=== PATIENT | male | born 1955 | race Caucasian/White ===

== ENCOUNTER 2018-10-03 05:41 | Inpatient (IN) | payer OTHER ==
[2018-10-03] MEDS ORDERED: LR 1,000 ML IV ONE (06:02)
[2018-10-03] MEDS ORDERED: MIDAZOLAM 2 MG/2 ML VIAL IVP ONE (06:11)
--- NOTE | 2018-10-03 06:12 | PDANEPAE ---
ANE History of Present Illness Late entry, patient seen in preop, examined and consented prior to 7 am ANE Past Medical History - Cardiovascular History Hx Hypertension: Yes Hx Arrhythmias: No Hx Chest Pain: No Hx Coronary Artery / Peripheral Vascular Disease: No Hx CHF / Valvular Disease: No Hx Palpitations: No Cardiovascular History Comment: HYPERLIPIDEMIA - Pulmonary History Hx COPD: No Hx Asthma/Reactive Airway Disease: No Hx Recent Upper Respiratory Infection: No Hx Oxygen in Use at Home: No Hx Sleep Apnea: No Sleep Apnea Screening Result - Last Documented: Positive Pulmonary History Comment: JAYLIN triggers - Neurologic History Hx Cerebrovascular Accident: No Hx Seizures: No Hx Dementia: No Neurologic History Comment: numbness right great toe and heel, occasional weakness RLE - Endocrine History Hx Diabetes: No - Renal History Hx Renal Disorders: No Renal History Comment: renal issues with dehydration summer 2017, has since resolved. enlarged prostate - Liver History Hx Hepatic Disorders: No - Neurological & Psychiatric Hx Hx Neurological and Psychiatric Disorders: No - Cancer History Hx Cancer: No - Congenital Disorder History Hx Congenital Disorders: No - GI History Hx Gastrointestinal Disorders: Yes Gastrointestinal History Comment: GERD - Other Health History Other Health History: wears glasses - Chronic Pain History Chronic Pain: Yes (low back, RLL) - Surgical History Prior Surgeries: thyroglossal duct excision, 2016. DISCECTOMY LUMBAR ~1991. nasal reconstruction when in [facility] ANE Review of Systems Review of Systems: - Exercise capacity METS (RN): 4 METS ANE Patient History - Allergies Allergies/Adverse Reactions: No Known Allergies Allergy (Verified 09/23/18 14:24) - Home Medications Home Medications: Aspirin [Aspirin 81mg (*)] 81 mg PO DAILY 09/16/18 [Last Taken 1 Week Ago ~09/26] Lisinopril [Zestril 20 mg (*)] 20 mg PO DAILY 09/16/18 [Last Taken 10/02/18] Multivitamins [Multivitamin (*)] 1 each PO DAILY 09/16/18 [Last Taken 09/26/18] Pantoprazole Sodium [Protonix 40mg (*)] 40 mg PO Q2D 09/16/18 [Last Taken 04:15] Tamsulosin HCl [Flomax 0.4 MG (*)] 0.4 mg PO HS 09/16/18 [Last Taken 10/02/18] - Anes Hx Anes Hx: no prior problems - Smoking Hx Smoking Status: Former smoker - Family Anes Hx Family Hx Anesthesia Complications: none ANE Labs/Vital Signs - Vital Signs Height: 176.53 cm Weight: 88.451 kg ANE Physical Exam - Airway Neck exam: FROM Mallampati Score: Class 1 Mouth exam: normal dental/mouth exam - Pulmonary Pulmonary: clear to auscultation - Cardiovascular Cardiovascular: regular rate and rhythym - ASA Status ASA Status: II
[2018-10-03] MEDS ORDERED: BUPIVACAINE/EPI 0.5% 30 ML SDV ONE (06:32)
[2018-10-03] MEDS ORDERED: BACITRACIN 50,000 UNITS/10 ML SYR IRR ONE (06:32)
[2018-10-03] MEDS ORDERED: ACETAMINOPHEN 500 MG TAB PO ONE (06:40)
[2018-10-03] MEDS ORDERED: TRANEXAMIC ACID 1,000 MG in NS 100 ML IV ONE (06:40)
[2018-10-03] MEDS ORDERED: GABAPENTIN 300 MG CAP PO ONE (06:40)
[2018-10-03] MEDS ORDERED: ceFAZolin 2 GM/DEXTROSE 100 ML IV ONE (06:40)
[2018-10-03] MEDS ORDERED: PROPOFOL/EMULSION 500 MG/50 ML BOTTLE IV ONE ×2 (07:02→09:20)
[2018-10-03] MEDS ORDERED: PROPOFOL 200 MG/20 ML VIAL ONE (07:02)
[2018-10-03] MEDS ORDERED: REMIFENTANIL HCL 1 MG VIAL ONE ×2 (07:02→09:20)
[2018-10-03] MEDS ORDERED: fentaNYL 100 MCG/2 ML INJ ONE ×3 (07:05→10:15)
[2018-10-03] MEDS ORDERED: GLYCOPYRROLATE 0.2 MG/1 ML VIAL ONE (07:52)
[2018-10-03] MEDS ORDERED: DEXAMETHASONE 4 MG/ML VIAL ONE ×3 (07:52)
[2018-10-03] MEDS ORDERED: ROCURONIUM 50 MG/5 ML VIAL ONE (07:55)
[2018-10-03] MEDS ORDERED: ePHEDrine SULFATE 25 MG/5 ML SYR ONE (07:55)
[2018-10-03] MEDS ORDERED: PHENYLEPHRINE 10 MG/ML SDV ONE (08:03)
--- NOTE | 2018-10-03 08:32 | POSTANESTH ---
Post Anesthetic Evaluation Cardiovascular Status: Normal, Stable Respiratory Status: Normal, Stable Level of Consciousness/Mental Status: Can Participate in Eval Pain Control: Adequate, Prn Tx Ordered Nausea/Vomiting Control: Adequate, Prn Tx Ordered Complications Possibly Related to Anesthesia: None Noted
[2018-10-03] MEDS ORDERED: VANCOMYCIN 1 GM VIAL ONE (09:22)
[2018-10-03] MEDS ORDERED: ONDANSETRON 4 MG/2 ML VIAL ONE (09:23)
[2018-10-03] MEDS ORDERED: MEPERIDINE 25 MG/0.5 ML AMP IVP PRN (09:35)
[2018-10-03] MEDS ORDERED: HYDROmorphONE/DILAUDID 2 MG/ML INJ IVP PRN (09:35)
[2018-10-03] MEDS ORDERED: LR 500 ML IV PRN (09:35)
[2018-10-03] MEDS ORDERED: METOCLOPRAMIDE 10 MG/2 ML VIAL IVP PRN (09:35)
[2018-10-03] MEDS ORDERED: LABETALOL HCL 5 MG/ML 20 ML MDV IVP PRN (09:35)
[2018-10-03] MEDS ORDERED: ONDANSETRON 4 MG/2 ML VIAL IVP PRN (09:35)
[2018-10-03] MEDS ORDERED: DIAZEPAM 5 MG/ML 1 ML SYR IVP PRN (09:35)
[2018-10-03] MEDS ORDERED: NALOXONE HCL 0.4 MG/ML INJ IVP PRN (09:35)
[2018-10-03] MEDS ORDERED: ALBUTEROL 3 ML DEYVIAL IH PRN (09:35)
[2018-10-03] MEDS ORDERED: PROMETHAZINE HCL 25 MG/ML INJ IVP PRN (09:35)
[2018-10-03] MEDS ORDERED: LACTULOSE 20 GM/30 ML UDCUP PO PRN (09:50)
[2018-10-03] MEDS ORDERED: MAGNESIUM HYDROXIDE 30 ML UDCUP PO PRN (09:50)
[2018-10-03] MEDS ORDERED: POLYETHYLENE GLYCOL 3350 17 GM PKT PO PRN (09:50)
[2018-10-03] MEDS ORDERED: BISACODYL 10 MG SUPP PR PRN (09:50)
--- NOTE | 2018-10-03 09:59 | SUROPNOTE ---
[facility] Operative Report - Surgery Date: 10/03/18 Pre-operative Diagnoses: L4/5 Degenerative disc disease and spondylosis L4/5 Degenerative spondylolisthesis Bilateral L4 pars insufficiency fractures Lumbar spinal stenosis Post-operative Diagnosis: Same Procedures: L4/5 Minimally Invasive Posterior Lumbar Decompression and Fusion with Instrumentation Rt L4/5 Transforaminal Lumbar Interbody Fusion (TLIF) Structural use of morselized local autograft bone Structural use of allograft Use of intra-operative fluoroscopy Use of intra-operative neuromonitoring, including EMG and SSEP modalities Use of a surgical microscope Surgeon: Raf Mackey MD Assist: Khari Ulloa Anesthesia: General endotracheal anesthesia Findings: As expected spondylolisthesis, spinal stenosis, facet hypertrophy Estimated Blood Loss: 20mL Drains: Hemovac Specimens: None Complications: None Condition: Transferred to PACU in stable condition Implants: NuVasive Screws: 6.5x45mm x4 Rods: 40mm x2 TLIF cage: [id number] 20deg cage, 9mm Allograft: 5mL allograft used structurally in the disc space and interbody cage Autograft: local bone from decompression used structurally in the disc space and interbody cage Indications: This patient was seen in my office and diagnosed with L4/5 degenerative spondylolisthesis and spinal stenosis. I have explained all options of treatment for the patient, and the patient has elected to proceed with operative management. I have explained all risks, benefits, and alternatives of the proposed procedure. The risks that we have discussed include , blindness, nerve damage, infection, dural tear, failure of surgery to alleviate pre-operative symptoms, nonunion, and possible need for further operation. I explained separately the risks of allograft, including infection and disease transfer. In addition to the aforementioned procedure, I discussed with the patient that other procedures may be indicated during the course of surgery that would be considered in the patients best interest. The patient expressed understanding of this and agreed to move forward with operative management. Pre-operative: The proposed incision site was marked in the pre-operative holding area by me. The patient was then taken to the operating room in stable condition. Following smooth induction of general anesthesia, the patient was positioned prone on a Clark table in mild reverse Trendelenburg with all down surfaces well-padded. The patient was then prepped and draped in the usual sterile fashion. Pre- operative antibiotics were administered within one hour of the incision. A surgical timeout was performed, and all parties involved in the procedure were in agreement on the correct patient, location, and procedure to be performed. Level localization and spinal pause: The proposed L4 and L5 levels were identified using C-arm fluoroscopy and the skin was marked for the proposed incision. The pedicles were marked out. Two separate incisions, 4cm lateral to midline were made, approximately 4cm in length. Electrocautery was used to dissect the subdermal fat layer down to fascia and to coagulate bleeding vessels. The fascia was then incised longitudinally in line with the incision. Blunt finger dissection was then performed; the facets were palpated and muscle was swept away al allow for instrumentation to be passed easily down to bone. At this time, a secondary spinal pause was then performed, and the level was confirmed with all parties participating in the operation. Pedicle screw placement: All pedicle screws were placed in a percutaneous fashion. Using biplanar fluoroscopy, a Jamshidi needle was gently malleted into place at the appropriate pedicle screw starting position at the lateral border of the facet on the AP view and mid-point of the pedicle on lateral view. The needle was advanced just past the pedicle into the vertebral body. At this point, a neurostimulating probe was attached to the end of the needle and all potentials were noted to be above 10 milliamps. The central trocar was then removed, and a blunt K-wire was passed into the cannulated pedicle. The Jamshidi was then removed completely, with the K-wire anchored in the vertebral body. A tap was then used up to a size that was 1mm below the final screw size based on pre- operative templating. An appropriately-sized screw was placed at each level and confirmed fluoroscopically. All screws were then stimulated. Each screw was stimulated and potentials were all above 20 milliAmps. Approach and transpedicular decompression (cephalad level nerve root to be fused ): Based on pre-operative neurological symptoms, a decision was made with the patient to place a TLIF cage on the more symptomatic side. A pointed dilator was introduced onto the lateral pars of the caudal level to be fused. Serial dilators were used and the XLIF retractor system was then docked. Positioning was confirmed parallel to the disc space to be fused by lateral fluoroscopy. Using a transpedicular decompression technique and taking care to avoid breach into the previously created pedicle tract, the inferior facet of the cephalad level to be fused, and the superior facet of the caudal level to be fused were removed using a high speed gabrielle and Kerrison rongeurs. Special care was taken to not use the high speed gabrielle in proximity to the underlying nerve root. Using a [place] #4, the nerve was protected cephalad and Kambins triangle was identified (bordered by the nerve root cephalad and the thecal sac medially). TLIF: The disc space to be fused was identified by appearance and consistency. With a disc knife angled away from neural structures, the annulus was transected and removed using a disc punch. A disc space dilator was used to free any remaining annulus, which was removed using a disc punch and/or scalpel. All remaining nucleus pulposus and cartilage from both cephalad and caudal end plates were removed using a series of straight and angled disc preparation curettes. A blunt -tipped long 10mL syringe was then passed into the disc space and flushed to remove any additional disc fragments; this was done multiple times until no further loose fragments were produced. Trial TLIF spacers were then passed into the disc space to both dilate the space and adequately size the final implant. Local autograft bone was then combined with allograft bone; 5mL of bone was inserted into the disc space using a specialized bone insertion device, and the remaining bone was placed into the interbody cage. After this, an appropriately sized cage was selected, packed with local autograft bone, and attached to an inserted handle. The TLIF cage was then malleted into place and positioning was confirmed by visual inspection and biplanar radiographs. Any bleeding epidural vessels were coagulated using bipolar cautery. Unilateral laminectomy and bilateral central decompression: A unilateral laminotomy and decompression was then carried out. The retractor was docked on the spinolaminar junction, and the ipsilateral lamina of both levels to be fused was removed completely down to ligamentum flavum. Care was taken to leave a minimum of 8mm of bone from the lateral border of the pars at each decompressed level. With the ligamentum left intact, the table was rotated away, and the contralateral ventral lamina of both levels to be fused was burred away using a high-speed gabrielle. In all, 50% of the caudal lamina of cephalad vertebra and 50% of the cephalad lamina of caudal level were removed for decompression purposes. The contralateral lateral recess was identified, and attention was turned toward removal of the ligamentum flavum. The cephalad and caudal nerve foraminae were palpated and determined to be completely decompressed. The contralateral recess was also freed of remaining soft tissue and ligamentum before the decompression was complete. In all, this aspect of the decompression allowed for complete central decompression of the traversing nerve roots (both the cauda equina and the roots associated with the caudal level to be fused). Jona and set screw placement, reduction of spondylolisthesis and bilateral pars insufficiency fractures: At this time, associated tulip heads were placed into the screws with associated reduction towers on the TLIF side. Using a percutaneous jona passer, an appropriately-sized jona was then placed into the pedicle screw heads with ample jona extending from either end. To ensure that the rods were appropriately positioned, three checks were performed: the rods were visually inspected, the insertion handle was torqued and both towers were visualized to move, and a lateral radiograph was taken to ensure an appropriate length to the rods. The set screws were then tightened in the caudal screws first. Using the reduction towers in the cephalad screws, the pedicle screws were then engaged and pulled posteriorly into the rods. This was done simultaneously on both sides to minimize stress at either level. At this point, a lateral radiograph was taken and reduction of the vertebral insufficiency fractures was noted. Of note, there were no changes in the SSEP and EMG monitoring during this maneuver. Set screws were then placed into the cephalad pedicle screws over the rods, and all set screws were tensioned using a torque-limited screwdriver. Bone graft: All bony surfaces were decorticated using a high speed gabrielle, including all facets to be fused. All local autograft bone was cleaned of soft tissue and morselized. All remaining allograft and autograft bone was placed in the facets being fused. Closure: The surgical field was then copiously irrigated with sterile saline. Vancomycin powder was then applied to the surgical field. A small drain was placed deep to the fascia and brought out of the skin superior and laterally. The drain was then sewn to skin. #1 vicryl suture were used to repair the fascia in an interrupted fashion. Then 2-0 interrupted sutures were used to repair the dermal layer, and a separate 3-0 monofilament suture was used to repair the subcutaneous layer in a running fashion. All sutures used were absorbable. Topical adhesive was then applied to the skin and allowed to dry. A sterile island dressing was applied over the surgical incision. A surgical count was performed before initiation of closure and following the procedure, and all were correct. I was present for the entire procedure. Surgical microscope use: A surgical microscope was utilized throughout the decompressive portion of this case. This was deemed necessary for safe and accurate surgical decompression of affected nerve roots. Neuromonitoring: SSEP, MEP and EMG were used throughout the case from incision until the beginning of closure. There were no significant changes throughout the case, and SSEP signals were at their pre-surgical baseline levels before surgical closure was initiated. instructional assistant: A surgical scrub technologist was used throughout the case, and deemed necessary for safe neural retraction, hemostasis, and suction. Recovery: The patient was extubated uneventfully in the operating room. The patient was taken to the recovery room in stable condition. Sequential compression devices for VTE prophylaxis were applied to the patients lower extremities, and were ordered to be used while the patient was non-ambulatory. Chemical VTE prophylaxis was considered to be contraindicated for this patient because of the risk of bleeding near the epidural space. Raf Mackey MD
[2018-10-03] MEDS: fentaNYL 100 MCG/2 ML INJ IVP PRN ×2 (10:20→10:44)
[2018-10-03] MEDS ORDERED: DIAZEPAM 5 MG/ML 1 ML SYR ONE (10:31)
--- NOTE | 2018-10-03 12:14 | PDMN ---
Medical Necessity Medical necessity: Pt meets inpt criteria per MD order and [facility] [place] S-820, Lumbar Fusion, 3 days. 63 y/o w/L4/5 degen disc disease and spondylosis, L4/5 degen spondolisthesis, bilat L4 pars insufficiency fx's, and lumbar spinal stenosis admitted for L4/5 TLIF, posterior lumbar decompression and fusion w/ instrumentation, and post-op care.
[2018-10-03] MEDS: oxyCODONE IR 5 MG TAB PO PRN ×3 (12:15→22:09)
[2018-10-03] MEDS: ACETAMINOPHEN 500 MG TAB PO SCH ×2 (13:26→22:08)
[2018-10-03] MEDS: GABAPENTIN 300 MG CAP PO SCH ×2 (13:27→22:07)
[2018-10-03] MEDS ORDERED: CYCLOBENZAPRINE 10 MG TAB PO PRN (13:59)
[2018-10-03] MEDS: LISINOPRIL 20 MG TAB PO SCH (15:41)
[2018-10-03] MEDS: ceFAZolin 2 GM/DEXTROSE 100 ML IV SCH (15:44)
[2018-10-03] MEDS ORDERED: TAMSULOSIN HCL 0.4 MG CAP PO SCH (21:00)
[2018-10-03] MEDS: SENNOSIDES/DOCUSATE SODIUM TAB PO SCH (22:08)
[2018-10-03] MEDS: FAMOTIDINE 20 MG TAB PO SCH (22:09)
[2018-10-04] MEDS: ceFAZolin 2 GM/DEXTROSE 100 ML IV SCH (00:14)
[2018-10-04] MEDS: ACETAMINOPHEN 500 MG TAB PO SCH (05:00)
[2018-10-04] MEDS: GABAPENTIN 300 MG CAP PO SCH (05:00)
[2018-10-04] MEDS: oxyCODONE IR 5 MG TAB PO PRN ×2 (07:13→10:43)
[2018-10-04 07:48] VITALS: BP 130/75
[2018-10-04] MEDS ORDERED: LISINOPRIL 20 MG TAB PO SCH (09:00)
[2018-10-04] MEDS: SENNOSIDES/DOCUSATE SODIUM TAB PO SCH (09:10)
[2018-10-04] MEDS: FAMOTIDINE 20 MG TAB PO SCH (09:10)
[2018-10-04] MEDS: LISINOPRIL 20 MG TAB PO SCH (09:11)
--- NOTE | 2018-10-04 10:16 | ASMTLACE ---
LACE Length of stay for Answers: 2 days current admission Acuity / Level of Answers: Yes Care: Did the patient have an inpatient admission? Comorbidities - select Answers: Opioid dependence all that apply / Chronic pain Other Notes: HTN; HLD # of Emergency department Answers: 1-2 visits in the last 6 months Score: 11 Date Signed: 10/04/2018 10:16 AM Electronically Signed By:MATTHEW Thompson
--- NOTE | 2018-10-04 10:57 | ASMTCMCOM ---
CM Note CM Note Notes: Pt had planned TLIF L4-5. PT rec home/outpatient. Pt resides with spouse. No CM d/c needs identified. Date Signed: 10/04/2018 10:56 AM Electronically Signed By:MATTHEW Thompson
--- NOTE | 2018-10-04 13:06 | GDS ---
Chato underwent an uneventful L4-5 MIS TLIF procedure on 10/03/2018 and did quite well from the ope ration. He had no issues during the hospitalization. His pain was well controlled on oral regimen, and his vital signs were within normal limits, and he progressed well with physical therapy and was s ubsequently discharged home on postoperative day 1. The patient should see me in 2 weeks' time. He should take narcotics and muscle relaxers that have b een prescribed to him for postoperative pain control. He is to wear the brace any time he is up and around. He is to take his dressing off 1 day after leaving the hospital and is allowed to shower but not bathe or submerge in water. He is not to bend, lift, or twist, and he is to wear the brace anytime he ambulates over several feet such as a small trip to the bathroom. All questions mckeon ve been answered. The patient has my cell phone, and he will call me if he has any questions postope ratively. Otherwise we will see him in 2 weeks' time. /[id number]/MODL
--- NOTE | 2018-10-04 21:20 | GPROG ---
I saw and evaluated Izaiah at bedside this morning. Overall he is doing quite well. He reports that the lower extremity symptoms he was having before surgery are now almost completely gone. His drain has minimal output. PHYSICAL EXAMINATION: On physical exam he has no gross sensorimotor or vascular deficits aside from some mild residual numbness in the left big toe. IMPRESSION: Postoperative day 1 status post MIS TLIF. PLAN: Chato can go home from my perspective. I will see him again in 2 weeks. All questions have been answered for the patient as well. /[id number]/MODL MTDD
== END 2018-10-04 11:00 | disposition home or self-care (01) | DRG 460 ==
LOC: F3N 05:41 → OBSVTOIN 09:53 → F3N 12:01
PROVIDERS: ADMIT Orthopaedic Surgery Orthopaedic Surgery of the Spine; ATTEND Orthopaedic Surgery Orthopaedic Surgery of the Spine
PROC: 4A1004G Monitoring of Central Nervous Electrical Activity, Intraoperative, Open Approach (ICD-10-PCS; principal; 2018-10-03 07:15)
PROC: 01NB0ZZ Release Lumbar Nerve, Open Approach (ICD-10-PCS; principal; 2018-10-03 07:15)
PROC: 0SG00AJ Fusion of Lumbar Vertebral Joint with Interbody Fusion Device, Posterior Approach, Anterior Column, Open Approach (ICD-10-PCS; principal; 2018-10-03 07:15)
PROC: 8E0WXBZ Computer Assisted Procedure of Trunk Region (ICD-10-PCS; principal; 2018-10-03 07:15)
PROC: 00NY0ZZ Release Lumbar Spinal Cord, Open Approach (ICD-10-PCS; principal; 2018-10-03 07:15)
DX: M47.816 Spondylosis without myelopathy or radiculopathy, lumbar region (principal); M84.48XA Pathological fracture, other site, initial encounter for fracture; M43.16 Spondylolisthesis, lumbar region; M48.062 Spinal stenosis, lumbar region with neurogenic claudication; K21.9 Gastro-esophageal reflux disease without esophagitis; E78.00 Pure hypercholesterolemia, unspecified; M10.9 Gout, unspecified; I10 Essential (primary) hypertension; G47.33 Obstructive sleep apnea (adult) (pediatric); Z87.891 Personal history of nicotine dependence
CPT/HCPCS: 97116-GP; 97161-GP; C1713; C1762; J0690; J1100; J2250; J2370; J2405; J2704; J3010; J3360; J3370

== ENCOUNTER 2019-01-12 11:06 | Emergency (ER) | payer OTHER ==
[2019-01-12] MEDS ORDERED: NS 1,000 ML IV ONE (11:44)
--- NOTE | 2019-01-12 11:44 | EDPHY ---
H & P Stated Complaint: dk urine/elevated bp l calf pain Time Seen by Provider: 01/12/19 11:27 HPI/ROS: CHIEF COMPLAINT: Elevated blood pressure, lightheadedness, left calf pain, dark urine, concerned about kidneys HISTORY OF PRESENT ILLNESS: The patient has a history of hypertension. He presents to the ED because he feels that he has become dehydrated as he experienced symptoms of lightheadedness with concurrent hypertension today. The patient has had some dark urine over the past several days. He does have a history of renal insufficiency secondary to dehydration and lisinopril use. Additionally the patient took his typical lisinopril dose at 3:00 a.m. In the morning and another tablet again this morning. The patient denies any symptoms of chest pain, severe headache, numbness or weakness currently. The patient denies any prior history of PE or DVT. The patient does admit that he is under fair amount of stress. REVIEW OF SYSTEMS: A comprehensive 10 point review of systems is otherwise negative aside from elements mentioned in the history of present illness. Source: Patient Exam Limitations: No limitations - Personal History Current Tetanus Diphtheria and Acellular Pertussis (TDAP): Unsure - Medical/Surgical History Hx Asthma: No Hx Chronic Respiratory Disease: No Hx Diabetes: No Hx Cardiac Disease: No Hx Renal Disease: No Hx Cirrhosis: No Hx Alcoholism: No Hx HIV/AIDS: No Hx Splenectomy or Spleen Trauma: No Other PMH: hypertension, hypercholesterol, BPH ,lumbar surg, - Social History Smoking Status: Former smoker - Physical Exam Exam: General Appearance: Alert, no distress Eyes: Pupils equal and round no pallor or injection ENT, Mouth: Mucous membranes moist Respiratory: There are no retractions, lungs are clear to auscultation Cardiovascular: Regular rate and rhythm Gastrointestinal: Abdomen is soft and nontender, no masses, bowel sounds normal Neurological: A&O, normal motor function, normal sensory exam, normal cranial nerves Skin: Warm and dry, no rashes Musculoskeletal: Neck is supple nontender Extremities: Patient reports left calf tenderness, no asymmetry noted, normal palpable pedal pulses bilaterally Psychiatric: Patient is oriented X 3, there is no agitation Constitutional: Initial Vital Signs Temperature (C) 36.5 C 01/12/19 11:09 Heart Rate 70 01/12/19 11:09 Respiratory Rate 18 01/12/19 11:09 Blood Pressure 138/84 H 01/12/19 11:09 O2 Sat (%) 97 01/12/19 11:09 O2 Delivery Mode Room Air Allergies/Adverse Reactions: No Known Allergies Allergy (Verified 01/12/19 11:07) Home Medications: Medication Instructions Recorded Lisinopril [Zestril 20 mg (*)] 20 mg PO DAILY 09/16/18 Tamsulosin HCl [Flomax 0.4 MG (*)] 0.4 mg PO HS 09/16/18 Protonix 01/12/19 Medical Decision Making - Diagnostics EKG Interpretation: EKG: Complete interpretation has been separately recorded in the [email or web address] archive. Summary impression: Sinus rhythm, rate 66, no ischemic changes noted ED Course/Re-evaluation: Patient presents the ED with multiple complaints including mildly elevated blood pressure earlier today which has resolved. A feeling of lightheadedness, subjective dehydration, calf pain and dark urine. The patient's EKG demonstrates no evidence of ischemia. His troponin is normal. The patient had no appreciable calf asymmetry noted on exam and his D-dimer is negative. I do feel this adequately excludes thromboembolic disease. The patient was treated with IV fluids. He is noted to have a normal CPK. He has normal renal function. The patient has clear urine in the emergency department with a dilute specific gravity. The patient does admit to being under some stress and anxiety which likely are contributing to his symptoms today. At this point time I find no concerning abnormalities on his workup. The patient has had no symptoms of chest pain or shortness of breath. The patient will be discharged from the emergency department with instructions to increase his fluid intake as mild dehydration may have contributed to his symptoms earlier today. Differential Diagnosis: Differential diagnosis considered includes renal failure, dehydration, metabolic abnormality, DVT, medication side effect, acute coronary syndrome, arrhythmia - Data Points Laboratory Results: Laboratory Results 01/12/19 12:03 01/12/19 12:03 01/12/19 01/12/19 01/12/19 12:03 12:03 12:03 WBC 6.43 10^3/uL 10^3/uL (3.80-9.50) RBC 4.66 10^6/uL 10^6/uL (4.40-6.38) Hgb 15.3 g/dL g/dL (13.7-17.5) Hct 44.6 % % (40.0-51.0) MCV 95.7 fL fL (81.5-99.8) MCH 32.8 pg pg (27.9-34.1) MCHC 34.3 g/dL g/dL (32.4-36.7) RDW 13.2 % % (11.5-15.2) Plt Count 250 10^3/uL 10^3/uL (150-400) MPV 9.6 fL fL (8.7-11.7) Neut % (Auto) 73.4 % % (39.3-74.2) Lymph % (Auto) 16.8 % % (15.0-45.0) [place] % (Auto) 8.2 % % (4.5-13.0) Eos % (Auto) 0.8 % % (0.6-7.6) Baso % (Auto) 0.5 % % (0.3-1.7) Nucleat RBC Rel Count 0.0 % % (0.0-0.2) Absolute Neuts (auto) 4.72 10^3/uL 10^3/uL (1.70-6.50) Absolute Lymphs (auto) 1.08 10^3/uL 10^3/uL (1.00-3.00) Absolute Monos (auto) 0.53 10^3/uL 10^3/uL (0.30-0.80) Absolute Eos (auto) 0.05 10^3/uL 10^3/uL (0.03-0.40) Absolute Basos (auto) 0.03 10^3/uL 10^3/uL (0.02-0.10) Absolute Nucleated RBC 0.00 10^3/uL 10^3/uL (0-0.01) Immature Gran % 0.3 % % (0.0-1.1) Immature Gran # 0.02 10^3/uL 10^3/uL (0.00-0.10) D-Dimer 0.37 ug/mLFEU ug/mLFEU (0.00-0.50) Sodium 135 mEq/L mEq/L (135-145) Potassium 4.4 mEq/L mEq/L (3.5-5.2) Chloride 104 mEq/L mEq/L (97-110) Carbon Dioxide 21 mEq/l L mEq/l (22-31) Anion Gap 10 mEq/L mEq/L (6-14) BUN 14 mg/dL mg/dL (7-23) Creatinine 1.0 mg/dL mg/dL (0.7-1.3) Estimated GFR > 60 Glucose 106 mg/dL H mg/dL (70-100) Calcium 9.4 mg/dL mg/dL (8.5-10.4) Total Bilirubin 1.2 mg/dL mg/dL (0.1-1.4) Conjugated Bilirubin 0.2 mg/dL mg/dL (0.0-0.5) Unconjugated Bilirubin 1.0 mg/dL mg/dL (0.0-1.1) AST 35 IU/L IU/L (17-59) ALT 47 IU/L IU/L (21-72) Alkaline Phosphatase 45 IU/L IU/L (38-126) Creatine Kinase 286 IU/L H IU/L (0-224) CK-MB (CK-2) Fraction Pending CK-MB (CK-2) % Pending Creatine Kinase Interp Pending Troponin I < 0.012 ng/mL ng/mL (0.000-0.034) Total Protein 7.5 g/dL g/dL (6.3-8.2) Albumin 4.4 g/dL g/dL (3.5-5.0) Lipase 65 IU/L IU/L (23-300) Urine Color Urine Appearance Urine pH Ur Specific [place] Urine Protein Urine Ketones Urine Blood Urine Nitrate Urine Bilirubin Urine Urobilinogen Ur Leukocyte Esterase Urine Glucose 01/12/19 11:57 WBC RBC Hgb Hct MCV MCH MCHC RDW Plt Count MPV Neut % (Auto) Lymph % (Auto) [place] % (Auto) Eos % (Auto) Baso % (Auto) Nucleat RBC Rel Count Absolute Neuts (auto) Absolute Lymphs (auto) Absolute Monos (auto) Absolute Eos (auto) Absolute Basos (auto) Absolute Nucleated RBC Immature Gran % Immature Gran # D-Dimer Sodium Potassium Chloride Carbon Dioxide Anion Gap BUN Creatinine Estimated GFR Glucose Calcium Total Bilirubin Conjugated Bilirubin Unconjugated Bilirubin AST ALT Alkaline Phosphatase Creatine Kinase CK-MB (CK-2) Fraction CK-MB (CK-2) % Creatine Kinase Interp Troponin I Total Protein Albumin Lipase Urine Color COLORLESS Urine Appearance CLEAR Urine pH 6.0 (5.0-7.5) Ur Specific [place] 1.001 L (1.002-1.030) Urine Protein NEGATIVE (NEGATIVE) Urine Ketones NEGATIVE (NEGATIVE) Urine Blood NEGATIVE (NEGATIVE) Urine Nitrate NEGATIVE (NEGATIVE) Urine Bilirubin NEGATIVE (NEGATIVE) Urine Urobilinogen NEGATIVE EU EU (0.2-1.0) Ur Leukocyte Esterase NEGATIVE (NEGATIVE) Urine Glucose NEGATIVE (NEGATIVE) Medications Given: Discontinued Medications Sodium Chloride (Ns) 1,000 mls @ 0 mls/hr IV EDNOW ONE; Wide Open PRN Reason: Protocol Stop: 01/12/19 11:45 Last Admin: 01/12/19 12:35 Dose: 1,000 mls Departure - Departure Disposition: Home, Routine, Self-Care Clinical Impression: Lightheadedness Condition: Good Instructions: Near Syncope (ED) Additional Instructions: 1. The workup in the emergency department today demonstrates no significant abnormality. 2. Please try and increase your fluid intake as mild dehydration may have contributed to your symptoms today. 3. Please return to the ED for markedly worsening symptoms or other concerns. Referrals: Chaka Bowser MD [Primary Care Provider] - As per Instructions
[2019-01-12 12:17] LABS: PLATELET COUNT 250 10^3/uL (150-400)
[2019-01-12 12:31] LABS: CREATINE KINASE 286 IU/L (0-224)
--- NOTE | 2019-01-12 13:00 | CPEKG ---
Test Reason : OPEN Blood Pressure : / mmHG Vent. Rate : 066 BPM Atrial Rate : 066 BPM P-R Int : 171 ms QRS Dur : 081 ms QT Int : 397 ms P-R-T Axes : -10 001 028 degrees QTc Int : 416 ms Sinus rhythm Confirmed by Jaxson Etienne ([id number]) on 01/12/2019 12:59:47 PM Referred By: Jaxson Etienne Confirmed By:Jaxson Etienne
[2019-01-12 13:07] VITALS: BP 133/90
== END 2019-01-12 13:13 | disposition home or self-care (01) ==
DX: R42 Dizziness and giddiness (principal); I10 Essential (primary) hypertension; M79.662 Pain in left lower leg; R82.998 Other abnormal findings in urine; E86.9 Volume depletion, unspecified